=== PATIENT | female | born 1985 | race Two or more races ===

== ENCOUNTER 2021-09-02 19:59 | Inpatient (IN) | payer MEDICAID ==
[~2021-09-02] VITALS: Ht 154.9 cm; Wt 68.9 kg
[2021-09-02] MEDS ORDERED: BUTORPHANOL TARTRATE 2 MG/1 ML VIAL IV PRN ×2 (20:15)
[2021-09-02] MEDS ORDERED: LIDOCAINE 2%HCL (LOCAL ANESTH.) INJ 20ML MDV IJ PRN (20:15)
[2021-09-02] MEDS ORDERED: LACT. RINGERS/OXYTOCIN 20UNITS 500 ML IV ONE ×3 (20:15→21:15)
[2021-09-02] MEDS ORDERED: TERBUTALINE SULFATE 1 MG/ML 1ML VIAL SC PRN (20:15)
[2021-09-02] MEDS ORDERED: LACTATED RINGER'S 1,000 ML IV SCH (20:15)
[2021-09-02] MEDS ORDERED: LACT. RINGERS/OXYTOCIN 20UNITS 1,000 ML IV ONE (20:26)
[2021-09-02] MEDS ORDERED: LIDOCAINE 1%-Mpf/Epinephrine 1:200,000 ONE (20:36)
[2021-09-02] MEDS ORDERED: LIDOCAINE 2%HCL (LOCAL ANESTH.) INJ 20ML MDV ONE (20:37)
[2021-09-02 20:55] VITALS: BP 91/50
[2021-09-02] MEDS ORDERED: PENICILLIN G POT 5MIL/D5 50ML 50 ML IV ONE (21:00)
[2021-09-02] MEDS ORDERED: ONDANSETRON ODT 4 MG TAB PO PRN (21:15)
[2021-09-02] MEDS ORDERED: ACETAMINOPHEN 325 MG TAB PO PRN (21:15)
[2021-09-02 22:17] LABS: Albumin 2.5 g/dL (3.4-5.0); BUN/Creatinine Ratio 18.4; Calcium 8.3 mg/dL (8.5-10.1); Potassium 3.7 mmol/L (3.5-5.1)
[2021-09-02 22:19] LABS: Basophils # (auto) 0 10 ^3/uL (0-0.2); Basophils % (auto) 0.1 % (0.0-2.0); Bilirubin, Total 0.4 mg/dL (0.2-1.0); Eosinophils # (auto) 0 10 ^3/uL (0-0.8); Eosinophils % (auto) 0.1 % (0.0-7.0); Hematocrit 37.8 % (36.0-46.0); Hemoglobin 12.9 g/dL (12.2-16.2); Lymphocytes # (auto) 1.1 10 ^3/uL (0.4-5.4); Lymphocytes % (auto) 8.4 % (10.0-50.0); Mean Corpuscular Hemoglobin 29.5 pg (28.0-32.0); Mean Corpuscular Hgb Conc. 34.1 g/dL (32.0-36.0); Mean Corpuscular Volume 86.5 fL (80.0-100.0); Monocytes # (auto) 0.6 10 ^3/uL (0-1.3); Monocytes % (auto) 5.2 % (0.0-12.0); Neutrophils # (auto) 10.8 10 ^3/uL (1.6-8.6); Neutrophils % (auto) 86.2 % (37.0-80.0); Red Blood Cells 4.38 10^6/uL (4.0-5.20); Red Cell Distribution Width 13.1 % (11.8-14.3); Total Protein 5.8 g/dL (6.4-8.2); White Blood Cell 12.5 10^3/uL (4.4-10.8)
[2021-09-02] MEDS: PHISODERM TOP SOLN 240ML BTL TOP PRN (22:21)
[2021-09-02] MEDS: DOCUSATE SOD 100 MG CAP PO SCH (22:21)
[2021-09-02] MEDS: DERMOPLAST 60ML BOTTLE TOP PRN (22:21)
[2021-09-02] MEDS: WITCH HAZEL-GLYCERIN PAD TOP PRN (22:21)
[2021-09-02 22:32] LABS: Amphetamine Screen, Urine NEGATIVE (NEGATIVE); Barbiturate Scree,Urine NEGATIVE (NEGATIVE); Benzodiazephine Screen, Urine NEGATIVE (NEGATIVE); Cannabinoid Screen, Urine NEGATIVE (NEGATIVE); Cocaine Screen, Urine NEGATIVE (NEGATIVE); Opiate Scree,Urine NEGATIVE (NEGATIVE); Phencyclidine Screen, Urine NEGATIVE (NEGATIVE)
[2021-09-02 22:35] LABS: INR 0.99 (0.9-1.15); Partial Thromboplastin Time 28.5 sec (23.6-33.0)
[2021-09-02 22:42] LABS: Urine Bacteria NONE SEEN /hpf (None Seen); Urine Blood 2+ /uL (Negative); Urine Mucus FEW (None Seen); Urine Specific Gravity 1.023 (1.001-1.035); Urine WBC 143 /hpf (0 - 5); Urine WBC Clumps PRESENT /hpf (None Seen)
[2021-09-02] MEDS: IBUPROFEN 800 MG TAB PO SCH (23:41)
[2021-09-03] VITALS (8 sets, daily range): BP systolic 91–117; BP diastolic 50–82
[2021-09-03] MEDS: IBUPROFEN 800 MG TAB PO SCH ×3 (05:50→18:00)
[2021-09-03] MEDS: IBUPROFEN 600 MG TAB PO PRN ×2 (14:04→22:40)
[2021-09-03] MEDS: DOCUSATE SOD 100 MG CAP PO SCH (22:40)
[2021-09-03] MEDS: PHISODERM TOP SOLN 240ML BTL TOP PRN (22:43)
[2021-09-03] MEDS: DERMOPLAST 60ML BOTTLE TOP PRN (22:55)
[2021-09-03] MEDS: WITCH HAZEL-GLYCERIN PAD TOP PRN (22:55)
[2021-09-04] MEDS: IBUPROFEN 800 MG TAB PO SCH
[2021-09-04 03:20] VITALS: BP 90/54
[2021-09-04 06:30] VITALS: BP 110/70
[2021-09-04 08:06] LABS: RPR Non Reactive (Non Reactive)
[2021-09-04 11:30] VITALS: BP 116/74
[2021-09-04] MEDS: IBUPROFEN 600 MG TAB PO PRN (14:33)
[2021-09-04] MEDS: DERMOPLAST 60ML BOTTLE TOP PRN (14:34)
[2021-09-04] MEDS: PHISODERM TOP SOLN 240ML BTL TOP PRN (14:35)
[2021-09-04 15:00] VITALS: BP 114/70
== END 2021-09-04 18:34 | disposition home or self-care (01) | DRG 560 ==
LOC: OBSVTOIN 19:59 → LDRP 19:59
PROVIDERS: ADMIT Obstetrics & Gynecology; ATTEND Obstetrics & Gynecology
PROC: 10E0XZZ Delivery of Products of Conception, External Approach (ICD-10-PCS; principal; 2021-09-02)
PROC: 0HQ9XZZ Repair Perineum Skin, External Approach (ICD-10-PCS; 2021-09-02)
PROC: 10907ZC Drainage of Amniotic Fluid, Therapeutic from Products of Conception, Via Natural or Artificial Opening (ICD-10-PCS; 2021-09-02)
DX: O70.0 First degree perineal laceration during delivery (principal); Z37.0 Single live birth; Z20.822 Contact with and (suspected) exposure to COVID-19; Z3A.36 36 weeks gestation of pregnancy
CPT/HCPCS: 36415; 59025; 59409; 80053; 80307; 81001; 81002; 85025; 85610; 85730; 86592; 86850; 86900; 86901; 87426; 94760; 96360; 96361; 96365; 96366; G0378; J2590